=== PATIENT | female | born 1950 | race Caucasian/White ===

== ENCOUNTER 2017-12-13 03:46 | Emergency (ER) | payer OTHER, MEDICAID ==
[~2017-12-13] VITALS: Ht 167.6 cm; Wt 80.0 kg
[~2017-12-13 03:46] MED LIST: TRAM50TA2 PO
[2017-12-13] MEDS ORDERED: HYDROcodone/APAP 5/325 TABLET ONE (03:58)
[2017-12-13] MEDS ORDERED: HYDROcodone/APAP 5/325 TABLET PO ONE (04:00)
[2017-12-13 05:00] VITALS: BP 129/81
== END 2017-12-13 05:51 | disposition home or self-care (01) ==
LOC: ED 04:16
DX: S06.0X0A Concussion without loss of consciousness, initial encounter (principal); S22.42XA Multiple fractures of ribs, left side, initial encounter for closed fracture; G89.11 Acute pain due to trauma; M25.562 Pain in left knee; M25.512 Pain in left shoulder; J45.909 Unspecified asthma, uncomplicated; G43.909 Migraine, unspecified, not intractable, without status migrainosus; Z87.19 Personal history of other diseases of the digestive system; W01.0XXA Fall on same level from slipping, tripping and stumbling without subsequent striking against object, initial encounter; Y93.89 Activity, other specified; Y92.89 Other specified places as the place of occurrence of the external cause; Y99.8 Other external cause status
CPT/HCPCS: 70450; 72125; 99284

== ENCOUNTER 2017-12-17 14:03 | Emergency (ER) | payer OTHER, MEDICAID ==
[~2017-12-17] VITALS: Ht 170.2 cm; Wt 110.0 kg
[2017-12-17] MEDS ORDERED: OXYC10TA47 PO (14:43)
[2017-12-17] MEDS ORDERED: BACL20TA PO (14:43)
[2017-12-17] MEDS ORDERED: HOME 02 INH (14:45)
[2017-12-17] MEDS ORDERED: OXYcodone/APAP 10/325MG TABLET PO ONE (16:00)
[2017-12-17] MEDS ORDERED: OXYcodone/APAP 10/325MG TABLET ONE (16:08)
[2017-12-17 16:12] VITALS: BP 123/62
== END 2017-12-17 16:14 | disposition home or self-care (01) ==
LOC: ED 15:40
DX: S22.42XA Multiple fractures of ribs, left side, initial encounter for closed fracture (principal); J98.11 Atelectasis; G43.909 Migraine, unspecified, not intractable, without status migrainosus; J45.909 Unspecified asthma, uncomplicated; W19.XXXA Unspecified fall, initial encounter; Y93.89 Activity, other specified; Y92.89 Other specified places as the place of occurrence of the external cause; Y99.8 Other external cause status
CPT/HCPCS: 71250; 99284

== ENCOUNTER 2017-12-31 12:17 | Emergency (ER) | payer OTHER, MEDICAID ==
[~2017-12-31] VITALS: Ht 170.2 cm; Wt 107.0 kg
[~2017-12-31 12:17] MED LIST changes: +BACL20TA PO; +HOME 02 INH; +OXYC10TA47 PO
[2017-12-31 12:26] VITALS: BP 138/63
[2017-12-31] MEDS ORDERED: HYDROcodone/APAP 5/325 TABLET ONE (12:51)
[2017-12-31] MEDS ORDERED: HYDROcodone/APAP 5/325 TABLET PO ONE (13:00)
== END 2017-12-31 15:18 | disposition home or self-care (01) ==
LOC: ED 15:07
DX: S22.32XA Fracture of one rib, left side, initial encounter for closed fracture (principal); S83.92XA Sprain of unspecified site of left knee, initial encounter; J45.909 Unspecified asthma, uncomplicated; W18.30XA Fall on same level, unspecified, initial encounter; Y93.89 Activity, other specified; Y92.89 Other specified places as the place of occurrence of the external cause; Y99.8 Other external cause status
CPT/HCPCS: 71045; 99284

== ENCOUNTER 2018-02-08 14:29 | Emergency (ER) | payer OTHER, MEDICAID ==
[~2018-02-08] VITALS: Ht 170.2 cm; Wt 109.7 kg
[2018-02-08] MEDS ORDERED: ONDANSETRON 2MG/ML, 2ML IVPush ONE (15:30)
[2018-02-08] MEDS ORDERED: MORPHINE SULFATE 4 MG/ML, 1ML IVPush ONE (15:30)
[2018-02-08] MEDS ORDERED: ONDANSETRON 2MG/ML, 2ML ONE (16:41)
[2018-02-08] MEDS ORDERED: MORPHINE SULFATE 4 MG/ML, 1ML ONE (16:41)
[2018-02-08 17:06] LABS: BASOPHILS # (AUTO) 0.04 x10^3/uL (0-0.1); BASOPHILS % (AUTO) 1 % (0-1); EOSINOPHILS # (AUTO) 0.19 x10^3/uL (0-0.4); EOSINOPHILS % (AUTO) 3 % (1-7); LYMPHOCYTES # (AUTO) 2.28 x10^3/uL (1-3.4); LYMPHOCYTES % (AUTO) 32 % (22-44); MD NO; MEAN CORPUSCULAR HEMOGLOBIN 30.7 pg (27.0-34.8); MEAN CORPUSCULAR HGB CONC 34.2 g/dL (32.4-35.8); MEAN CORPUSCULAR VOLUME 89.7 fL (80-100); MEAN PLATELET VOLUME 9.4 fL (7.4-10.4); MONOCYTES # (AUTO) 0.53 x10^3/uL (0.2-0.8); MONOCYTES % (AUTO) 8 % (2-9); NEUTROPHILS # (AUTO) 4.07 x10^3/uL (1.8-6.8); NEUTROPHILS % (AUTO) 57 % (42-75); PLATELET COUNT 238 x10^3/uL (130-400); RED BLOOD COUNT 3.97 x10^6/uL (3.82-5.3); RED CELL DISTRIBUTION WIDTH 16.6 % (9.6-15.2)
[2018-02-08 17:13] LABS: ANION GAP 6 mmol/L (5-15); CALCIUM 8.7 mg/dL (8.5-10.1); CHLORIDE 110 mmol/L (98-107); CREATININE 0.98 mg/dL (0.55-1.02)
[2018-02-08 18:30] VITALS: BP 126/63
== END 2018-02-08 19:14 | disposition home or self-care (01) ==
LOC: ED 17:10
DX: S02.2XXA Fracture of nasal bones, initial encounter for closed fracture (principal); S16.1XXA Strain of muscle, fascia and tendon at neck level, initial encounter; S00.83XA Contusion of other part of head, initial encounter; G43.909 Migraine, unspecified, not intractable, without status migrainosus; J45.909 Unspecified asthma, uncomplicated; F41.1 Generalized anxiety disorder; W18.30XA Fall on same level, unspecified, initial encounter; Y93.01 Activity, walking, marching and hiking; Y99.8 Other external cause status; Y92.009 Unspecified place in unspecified non-institutional (private) residence as the place of occurrence of the external cause
CPT/HCPCS: 36415; 70450; 70486; 72125; 73030; 73564; 80048; 85025; 93971; 96374; 96375; 99284; J2405

== ENCOUNTER 2018-02-09 16:06 | Emergency (ER) | payer OTHER, MEDICAID ==
[~2018-02-09] VITALS: Ht 170.2 cm; Wt 114.0 kg
--- NOTE | 2018-02-09 16:25 | NUR ---
PT BIB [facility] FOR LOW BACK PAIN. PT REPORTS LOW BACK PAIN WITH PAIN GOING DOWN LEGS AND NUMB LEFT KNEE. SHE DOES NOT KNOW IF THE PAIN GOES DOWN BOTH LEGS. REPORTS INCREASED PAIN WITH WALKING. DENIES LOSS OF BOWEL AND BLADDER. PT IS ALERT, ORIENTED, WITH NAD. PT IS CONNECTED TO THE MONITOR. CALL LIGHT WITHIN REACH. MD AT BEDSIDE.
--- NOTE | 2018-02-09 16:27 | NUR ---
ASKED IF PT TOOK HER TRAMADOL TODAY, SHE SAID NO. HE SAID TRYING TO MAKE THEM LAST? PT NODDED. MD STATED THAT HE WILL ORDER A TRAMADOL. MD LEFT THE ROOM. PT STATED THAT SHE DOES NOT WANT TRAMADOL, THAT IT DOESNT WORK. INFORMED PT THAT MD WILL BE INFORMED OF HER REQUEST.
--- NOTE | 2018-02-09 16:31 | NUR ---
INFORMED PT THAT MD ORDERED 50 MG TRAMADOL. PT STATED THAT SHE DOES NOT WANT IT. REPORTS THAT SHE TAKES TWICE THAT MUCH AND THAT IT DOES NOT WORK FOR THIS PAIN. PT REQUESTED TO HAVE THE BEAR HUGGER ON. BEAR HUGGER WAS PLACED ON THE BED AND TURNED ON.
--- NOTE | 2018-02-09 16:35 | NUR ---
PT IS YELLING FROM ROOM. STATED YOU DID NOT GIVE ME THE NURSE CALL BUTTON. POINTED OUT THAT THE NURSE BUTTON IS RIGHT NEXT TO HER ON THE TABLE. PT STATED GIVE ME MY PHONE IN THAT BAG. GAVE PT HER PHONE. PT IS ALERT, ORIENTED, WITH NAD. PT IS CONNECTED TO THE MONITOR. CALL LIGHT WITHIN REACH.
--- NOTE | 2018-02-09 16:46 | NUR ---
LET PT KNOW THAT THE MD HAS BEEN INFORMED THAT SHE DOES NOT WANT THE TRAMADOL. INFORMED HER THAT THERE ARE NO NEW ORDERS.
--- NOTE | 2018-02-09 17:09 | NUR ---
PT IS SLEEPING. RESPIRATIONS EQUAL AND NON LABORED. NAD. PT IS CONNECTED TO THE MONITOR. CALL LIGHT WITHIN REACH.
[2018-02-09] MEDS ORDERED: KETOROLAC 30 MG/1 ML ONE (17:27)
[2018-02-09] MEDS ORDERED: METHOCARBAMOL 750 MG TABLET ONE (17:27)
[2018-02-09] MEDS ORDERED: METHOCARBAMOL 750 MG TABLET PO ONE (17:30)
[2018-02-09] MEDS ORDERED: KETOROLAC 30 MG/1 ML IM ONE (17:30)
--- NOTE | 2018-02-09 17:39 | NUR ---
PT MEDICATED PER ORDER. PT TOLERATED WELL.
--- NOTE | 2018-02-09 18:28 | NUR ---
PT IS LAYING IN BED, PULLING LARGE BUGGERS OUT OF HER NOSE. PT GIVEN TISSUES.
--- NOTE | 2018-02-09 18:57 | NUR ---
REPORT GIVEN TO EMI CONDE.
[2018-02-09 19:45] VITALS: BP 128/55
== END 2018-02-09 19:47 | disposition home or self-care (01) ==
LOC: ED 19:43
DX: S39.012A Strain of muscle, fascia and tendon of lower back, initial encounter (principal); G89.29 Other chronic pain; M25.562 Pain in left knee; F41.1 Generalized anxiety disorder; J45.909 Unspecified asthma, uncomplicated; W19.XXXA Unspecified fall, initial encounter; Y93.89 Activity, other specified; Y92.89 Other specified places as the place of occurrence of the external cause; Y99.8 Other external cause status
CPT/HCPCS: 72131; 96372; 99284; J1885

== ENCOUNTER 2019-07-26 17:01 | Emergency (ER) | payer OTHER, MEDICAID ==
[~2019-07-26] VITALS: Ht 167.6 cm; Wt 114.0 kg
--- NOTE | 2019-07-26 18:00 | NUR ---
ASSUMED CARE OF PT AT THIS TIME FROM LOBBY.
--- NOTE | 2019-07-26 18:01 | NUR ---
TO ROOM FROM LOBBY. NAD.
[2019-07-26] MEDS ORDERED: BACL-19 PO (18:37)
[2019-07-26] MEDS ORDERED: EZET10TA70 PO (18:37)
[2019-07-26] MEDS ORDERED: MONT10TA6 PO (18:37)
[2019-07-26] MEDS ORDERED: PROP10TA16 PO (18:37)
[2019-07-26] MEDS ORDERED: FAMO-79 PO (18:37)
[2019-07-26] MEDS ORDERED: LURA20TA PO (18:37)
[2019-07-26] MEDS ORDERED: SENN8.6T12 PO (18:37)
[2019-07-26] MEDS ORDERED: CHOL10003 PO (18:37)
[2019-07-26] MEDS ORDERED: EVOL140S2 SQ (18:37)
[2019-07-26] MEDS ORDERED: TRAZ50TA66 PO (18:37)
[2019-07-26] MEDS ORDERED: PREG200C PO (18:37)
[2019-07-26] MEDS ORDERED: DOCU-131 PO (18:37)
[2019-07-26] MEDS ORDERED: CROM13SP5 NAS (18:37)
[2019-07-26] MEDS ORDERED: PANT40TA3 PO (18:37)
[2019-07-26] MEDS ORDERED: RIVA20TA PO (18:37)
[2019-07-26] MEDS ORDERED: SUVO20TA PO (18:37)
[2019-07-26] MEDS ORDERED: CODE1CAP9 PO (18:37)
[2019-07-26] MEDS ORDERED: BUDE10.22 INH (18:37)
[2019-07-26] MEDS ORDERED: FEXO180T15 PO (18:37)
[2019-07-26] MEDS ORDERED: DICL1ADH15 TP (18:37)
[2019-07-26] MEDS ORDERED: DIAZ5TAB PO (18:37)
[2019-07-26] MEDS ORDERED: OXYcodone/APAP 5/325MG TABLET ONE (18:41)
[2019-07-26] MEDS ORDERED: OXYcodone/APAP 5/325MG TABLET PO ONE (19:00)
--- NOTE | 2019-07-26 19:45 | NUR ---
PT REPORTS PAIN IS BETTER AFTER PERCOCET BY BEING ABLE TO MOVE EASIER.
--- NOTE | 2019-07-26 20:00 | NUR ---
CHART UP FOR MD RECHECK. PT AWARE.
[2019-07-26 20:08] VITALS: BP 155/88
== END 2019-07-26 20:43 | disposition home or self-care (01) ==
LOC: ED 20:16
DX: S39.012A Strain of muscle, fascia and tendon of lower back, initial encounter (principal); S30.0XXA Contusion of lower back and pelvis, initial encounter; M25.512 Pain in left shoulder; R94.31 Abnormal electrocardiogram [ECG] [EKG]; W06.XXXA Fall from bed, initial encounter; Z87.891 Personal history of nicotine dependence; Y93.89 Activity, other specified; Y92.009 Unspecified place in unspecified non-institutional (private) residence as the place of occurrence of the external cause; Y99.8 Other external cause status
CPT/HCPCS: 72072; 72110; 93005; 99284; 99285